=== PATIENT | female | born 1990 | race Two or more races ===

== ENCOUNTER → 2017-05-06 | Emergency (ER) | payer OTHER ==
[~2017-05-06] VITALS: Ht 160 cm; Wt 63.5 kg
[~2017-05-06] MED LIST: ACIDOPHILUS1 EAC3 PO; AMOX1TAB12 PO; CLARITIN-D 241 EACH PO; HYDROXYCHLOROQ200 MG; KETO10TA2 PO; MOTRIN800 MG PO; NASONEX17 GM TOP; NORFLEX100MG PO; PREDNISONE5 MG/DOSE-; ZANTAC150 M3 PO
== END | disposition home or self-care (01) ==
LOC: ER 09:15
DX: M54.2 Cervicalgia (principal)

== ENCOUNTER 2017-09-01 18:47 | Emergency (ER) | payer OTHER ==
[~2017-09-01] VITALS: Ht 162.6 cm; Wt 68.5 kg
== END 2017-09-01 20:33 | disposition home or self-care (01) ==
LOC: ER 18:47
DX: J06.9 Acute upper respiratory infection, unspecified (principal)

== ENCOUNTER 2017-10-16 19:03 | Emergency (ER) | payer OTHER ==
[~2017-10-16] VITALS: Ht 162.6 cm; Wt 67.1 kg
== END 2017-10-16 22:04 | disposition home or self-care (01) ==
LOC: ER 19:03
DX: K05.10 Chronic gingivitis, plaque induced (principal); M32.9 Systemic lupus erythematosus, unspecified

== ENCOUNTER 2018-03-07 18:07 | Inpatient (IN) | payer OTHER ==
[~2018-03-07] VITALS: Ht 162.6 cm; Wt 69.9 kg
[2018-03-07] MEDS ORDERED: PREDNISOLONE5 G1 (18:24)
== END 2018-03-09 14:03 | disposition home or self-care (01) | DRG 440 ==
LOC: ER 18:07 → MEDJ 03-08 09:39 → SEC-K 03-08 09:39 → MEDJ 03-08 11:55
DX: K85.30 Drug induced acute pancreatitis without necrosis or infection (principal); T50.995A Adverse effect of other drugs, medicaments and biological substances, initial encounter

== ENCOUNTER 2018-05-03 14:31 | Emergency (ER) | payer OTHER ==
[~2018-05-03] VITALS: Ht 162.6 cm; Wt 63.5 kg
[~2018-05-03 14:31] MED LIST changes: +PREDNISOLONE5 G1
== END 2018-05-03 17:48 | disposition home or self-care (01) ==
LOC: ER 14:31
DX: J06.9 Acute upper respiratory infection, unspecified (principal)